=== PATIENT | male | born 1945 | race Caucasian/White ===

== ENCOUNTER 2019-01-28 10:31 | Emergency (ER) | payer OTHER ==
--- NOTE | 2019-01-28 10:49 | PDOC ---
History of Present Illness - General Stated Complaint: HEAD LAC Time Seen by Provider: 01/28/19 10:49 - History of Present Illness Initial Comments: 01/28/19 11:19 The patient is a 74 year old male with a history of HTN, HLD, DM, Afib on Pradaxa who presents for evaluation following a fall. The patient reports that he was walking when he slipped on some ice and fell with head trauma. He states he hit the left side of his face on the cement and denies any LOC but sustained a laceration to his left eyebrow prompting his presentation to the ED for further evaluation. The patient otherwise denies any headache, vision changes, SOB, chest pain, nausea, vomiting, abdominal pain, numbness, tingling, weakness, other injuries, or changes with urination or bowel movements. Past History - Past Medical History Allergies/Adverse Reactions: Allergies Allergy/AdvReac Type Severity Reaction Status Date / Time No Known Allergies Allergy Verified 01/28/19 11:12 Home Medications: Ambulatory Orders Ascorbate Calcium [Vitamin C] 500 mg PO DAILY 01/28/19 Aspirin [Taylor Chewable] 81 mg PO DAILY 01/28/19 Atorvastatin Ca [Lipitor] 80 mg PO HS 01/28/19 Cholecalciferol (Vitamin D3) [Vitamin D3 -] 1,000 unit PO DAILY 01/28/19 Dabigatran Etexilate Mesylate [Pradaxa -] 2 tab PO BID 01/28/19 Diltiazem Cd [Cardizem Cd -] 120 mg PO DAILY 01/28/19 Glimepiride [Amaryl -] 0.5 tab PO DAILY 01/28/19 Lisinopril/Hydrochlorothiazide [Lisinopril-Hctz 20-12.5 mg Tab] 2 tab PO DAILY 01/28/19 Multivit-Min/FA/Lycopen/Lutein [Centrum Silver Tablet] 1 each PO DAILY 01/28/19 [place]-3 Fatty Acids/Fish Oil [Fish Oil 1,000 mg Capsule] 1 each PO DAILY Sitagliptin Phosphate [Januvia] 100 mg PO DAILY 01/28/19 Ubidecarenone [Coq-10] 100 mg PO DAILY 01/28/19 Review of Systems - Review of Systems Comments:: 01/28/19 11:21 Constitutional: No fevers, chills, fatigue, malaise HEENT: laceration to the left eye brow. No Rhinorrhea, nasal congestion, visual changes Cardiovascular: No chest pain, syncope, palpitations, lightheadedness Respiratory: No Cough, SOB, Hemoptysis, Gastrointestinal: No Abdominal pain, Nausea, Vomiting, Constipation, Diarrhea, Melena Genitourinary: No Dysuria, Frequency, Urgency, Hesitancy, Hematuria, Flank pain Musculoskeletal: No Myalgia, arthralgia Skin: No rashes, itching, bruising, pallor Neurologic: No Headache, Dizziness, Numbness, Weakness, or Tingling Psychiatric: No Hallucinations. No SI or HI *Physical Exam - Physical Exam 01/28/19 11:22 General Appearance: Nourished. No Apparent Distress HEENT: EOMI, LENIN. 2cm linear laceration to the left eyebrow. abrasion to the left cheek. No Pharyngeal Erythema, Tonsillar Exudate, Tonsillar Erythema Neck: No Cervical Lymphadenopathy Respiratory/Chest: Lungs Clear, Normal Breath Sounds. No Crackles, Rales, Rhonchi, Wheezing Cardiovascular: Irregularly Irregular Rhythm, Regular Rate. No Murmur, Gallops, Rubs Gastrointestinal/Abdominal: Normal Bowel Sounds, Soft. 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 Procedures - Laceration/Wound Repair Right Face Wound Length: to 2.5 cm Wound Explored: clean, no foreign body present Wound's Depth, Shape: superficial, linear Irrigated w/ Saline: Yes Anesthesia: 1% Lidocaine Amount of Anesthetic (ccs): 4 Wound Repaired With: Sutures Suture Size/Type: 5:0, nylon Number of Sutures: 9 Layer Closure: Yes Sterile Dressing Applied: Yes Medical Decision Making - Medical Decision Making 01/28/19 11:23 The patient is a 74 year old male with a history of HTN, HLD, DM, Afib on Pradaxa who presents for evaluation following a fall. Given the patient's history and physical exam, we will obtain a head, facial bone, and cervical spine ct to evaluate further. We will up date the patient's tetanus status and the patient will require laceration repair after CT imagining. We will continue to monitor and reassess while here in the ED. 01/28/19 18:53 CT imaging did not demonstrate any acute process as read by our radiologist. The patient's laceration was repaired with 9 5-0 nylon sutures. We recommend that the patient be admitted for repeat CT imaging tomorrow given his anticoagulation however the patient wishes to leave AMA. I believe this patient is of sound mind and competent to refuse medical care. The patient is responding and asking questions appropriately. The patient is oriented to person , place and time. The patient is not psychotic, delusional, suicidal, homicidal or hallucinating. The patient demonstrates a normal mental capacity to make decisions regarding their healthcare. The patient is clinically sober and does not appear to be under the influence of any illicit drugs at this time. The patient has been advised of the risks, in layman terms, of leaving AMA which include, but are not limited to cardiac arrest, severe infection, dehydration, myocardial infarction, arrhythmia, stroke, respiratory failure, , coma, permanent disability, loss of current lifestyle, delay in diagnosis. Alternatives have been offered - the patient remains steadfast in their wish to leave. The patient has been advised that should they change their mind they are welcome to return to this hospital, or any other, at any time. The patient understands that in no way does an AMA discharge mean that I do not want them to have the best medical care available. To this end, I have provided appropriate prescriptions, referrals, and discharge instructions. Pt will follow up with primary care doctor with reevaluation. Return precautions advised , call [phone] immediately if severe life threatening symptoms or concerns. Pt has verbalized understanding of information provided, questions answered. The patient did sign AMA paperwork. Discharge - Discharge Information Problems reviewed: Yes Clinical Impression/Diagnosis: Laceration Head trauma Qualifiers: Encounter type: initial encounter Qualified Code(s): S09.90XA - Unspecified injury of head, initial encounter Condition: Stable Disposition: AGAINST MEDICAL ADVICE - Follow up/Referral - Patient Discharge Instructions Patient Printed Discharge Instructions: DI for Laceration Repair -- Simple, DI for Closed Head Injury Additional Instructions: 1) Please follow-up with your primary care doctor in the next 2-3 days. Please call tomorrow to schedule a follow up appointment. If you cannot follow up with your doctor within 1 week please return to the Emergency Department for any urgent issues. 2) Your imaging results were normal here in the ER. You had 9 sutures placed which should be removed in 5-7 days. Please keep the wound clean and dry. 3) If you have any worsening of symptoms or any other concerns, please return to the ER immediately. Return if worsening symptoms including fevers, headache, vomiting, visual or hearing disturbances, abdominal pain, chest pain, shortness of breath, syncope, dehydration, inability to take things by mouth/vomiting, altered mental status, or worsening concerning symptoms. 4) Please continue taking your home medications as directed. Side effects may include upset stomach, abdominal pain, vomiting, or diarrhea. Do not drink alcohol with your medications. - Post Discharge Activity
[2019-01-28] MEDS ORDERED: DIPHTH,PERTUSS(ACELL),TET 0.5 ML DISP.SYRIN IM ONE (10:59)
--- NOTE | 2019-01-28 11:07 | PDOC ---
History of Present Illness - General Chief Complaint: Head/Neck problem Stated Complaint: HEAD LAC Time Seen by Provider: 01/28/19 10:49
[2019-01-28 11:13] VITALS: TEMP 97.3; BMI 34.3
--- NOTE | 2019-01-28 13:05 | PDOC ---
Documentation entered by Jac Gallo SCRIBE, acting as scribe for Lynn Brink MD. Lynn Brink MD: This documentation has been prepared by the Cleo ramirez Nirvannie, SCRIBE, under my direction and personally reviewed by me in its entirety. I confirm that the documentation accurately reflects all work, treatment, procedures, and medical decision making performed by me. Attending Attestation - Resident Resident Name: Salas Thakur - ED Attending Attestation I have performed the following: I have examined & evaluated the patient, The case was reviewed & discussed with the resident, I agree w/resident's findings & plan, Exceptions are as noted - HPI HPI: 01/28/19 11:50 The patient is a 74 year old male, with a significant past medical history of HTN, HLD, DM, Afib (on Pradaxa), who presents to the emergency department s/p mechanical fall with a laceration to the left eyebrow. As per patient, he was ambulating at which time he slipped on ice falling onto his left side and hitting the left side of his face on cement. He denies any LOC, head/neck pain, dizziness, palpitations, lightheadedness, nausea, vomiting, diaphoresis, chest pain, or shortness of breath. He denies any changes in strength/sensation or paresthesias. He denies any recent dysuria , frequency, urgency or hematuria. Allergies: NKDA - Physicial Exam PE: 01/28/19 13:01 Agree with resident exam - Medical Decision Making 01/28/19 13:03 74yo M presnets to the ED with head injury after mechanical fall. Pt on pradaxa. CTH, facial bones, c-spine negative for acute injury Laceration repaired Pt neuro intact, no other injuries Plan for obs admission for rpt CTH to r/o delayed traumatic ICH on NOAC
[2019-01-28 13:28] VITALS: BP 128/73; PULSE 105
== END 2019-01-28 13:25 | disposition left against medical advice (07) ==
LOC: JER 10:31
PROC: 3E0234Z Introduction of Serum, Toxoid and Vaccine into Muscle, Percutaneous Approach (ICD-10-PCS; principal; 2019-01-28)
PROC: 0HQ1XZZ Repair Face Skin, External Approach (ICD-10-PCS; 2019-01-28)
DX: S01.112A Laceration without foreign body of left eyelid and periocular area, initial encounter (principal); W00.0XXA Fall on same level due to ice and snow, initial encounter; Y93.89 Activity, other specified; Y92.89 Other specified places as the place of occurrence of the external cause; I10 Essential (primary) hypertension; E78.5 Hyperlipidemia, unspecified; E11.9 Type 2 diabetes mellitus without complications; I48.91 Unspecified atrial fibrillation; Z79.01 Long term (current) use of anticoagulants
CPT/HCPCS: 70450-TC; 70486-TC; 72125-TC; 90715; 99282-25